=== PATIENT | male | born 1980 | race Caucasian/White ===

== ENCOUNTER 2016-07-01 00:52 | Emergency (ER) | payer OTHER ==
[2016-07-01 01:01] VITALS: RESP 18
[2016-07-01] MEDS ORDERED: KETOROLAC 60 MG/2 ML VIAL IM STA (01:15)
--- NOTE | 2016-07-01 01:15 | ED ---
General Adult HPI - General Chief complaint: ENT Stated complaint: Ear Pain/Bleeding Time Seen by Provider: 07/01/16 01:06 Source: patient Mode of arrival: ambulatory Limitations: no limitations - History of Present Illness Initial comments: 35-year-old male patient presents to emergency department today for complaints of left ear pain. Patient states that the pain started as a mild dull pain around 1900 yesterday evening. Patient states that throughout the night the pain has intensified and is now a sharp stabbing pain. Patient states that he has had some mild nasal congestion, but denies any other symptoms. Patient denies any fever or chills. Patient states he did have ear infections as a child but nothing since then. Patient states he did notice small amount of bloody drainage coming from the ear. Denies inserting anything into the ear. Denies any dizziness, headache, or weakness. - Related Data Previous Rx's Medication Instructions Recorded Amoxicillin/Potassium Clav 1 tab PO Q12HR #20 tab 07/01/16 [Augmentin 875-125 Tablet] Allergies Allergy/AdvReac Type Severity Reaction Status Date / Time No Known Allergies Allergy Verified 07/01/16 01:01 Review of Systems ROS Statement: Those systems with pertinent positive or pertinent negative responses have been documented in the HPI. ROS Other: All systems not noted in ROS Statement are negative. Past Medical History Past Medical History: No Reported History History of Any Multi-Drug Resistant Organisms: None Reported Past Surgical History: No Surgical Hx Reported Past Psychological History: No Psychological Hx Reported Smoking Status: Never smoker Past Alcohol Use History: None Reported Past Drug Use History: None Reported General Exam Limitations: no limitations General appearance: alert, in no apparent distress Eye exam: Present: normal appearance, PERRL, EOMI. Absent: scleral icterus, conjunctival injection, periorbital swelling ENT exam: Present: normal oropharynx. Absent: TM's normal bilaterally (Bloody drainage noted near tympanic membrane. No mastoid tenderness. No periauricular lymph nodes palpable.) Expanded TM/Canal exam: Bulging: Left TM, Effusion: Left TM Respiratory exam: Present: normal lung sounds bilaterally. Absent: respiratory distress, wheezes, rales, rhonchi, stridor Cardiovascular Exam: Present: regular rate, normal rhythm, normal heart sounds. Absent: systolic murmur, diastolic murmur, rubs, gallop, clicks GI/Abdominal exam: Present: soft, normal bowel sounds. Absent: distended, tenderness, guarding, rebound, rigid Neurological exam: Present: alert, oriented X3, CN II-XII intact Psychiatric exam: Present: normal affect, normal mood Skin exam: Present: warm, dry, intact, normal color. Absent: rash Course Vital Signs 07/01/16 07/01/16 00:59 02:18 Temperature 97.2 F L 98.2 F Pulse Rate 79 80 Respiratory 18 18 Rate Blood Pressure 218/114 189/111 O2 Sat by Pulse 99 96 Oximetry Medical Decision Making - Medical Decision Making 35-year-old male patient presented to emergency department today for evaluation of left ear pain. Physical exam did reveal a bulging and erythematous tympanic membrane. Patient also was found to have high blood pressure readings while in emergency. Patient was given a Norvasc which brought the blood pressure down to the 180s systolic, over 110 diastolic. He patient will be given a clonidine and discharged home with a prescription to continue Norvasc. Also given strict instructions to establish care with a primary care physician in order to manage blood pressure. Be given a prescription for Augmentin to treat otitis media. Patient instructed to return for any new, worsening, or concerning symptoms. Patient verbalizes understanding and agrees with this plan. - Lab Data Lab Results 07/01/16 Range/Units 01:29 POC Glucose (mg/dL) 121 H (75-99) mg/dL POC Glu Value Engineer ID Reagan Sawyer Disposition Clinical Impression: Otitis media, Accelerated hypertension Disposition: HOME SELF-CARE Condition: Stable Instructions: Earache (ED), Otitis Media (ED), Hypertension (ED) Additional Instructions: Take blood pressure medication as directed. It is very important that you establish care with a primary care physician in order to manage high blood pressure. Complete antibiotic prescription in full. Return to emergency department for any new, worsening, or concerning symptoms. Prescriptions: Amoxicillin/Potassium Clav [Augmentin 875-125 Tablet] 1 tab PO Q12HR #20 tab Referrals: None,Stated [Primary Care Provider] - 1-2 days Diomedes Estes MD [STAFF PHYSICIAN] - 1-2 days Time of Disposition: 02:25
[2016-07-01] MEDS ORDERED: amLODIPine 10 MG TAB PO STA (01:25)
[2016-07-01 01:30] LABS: Glucose,Whole Blood 121 mg/dL (75-99)
[2016-07-01] MEDS ORDERED: AMOXICILLIN 500MG STARTER PACK 3 CAP BTL PO STA (01:46)
[2016-07-01 02:20] VITALS: TEMP 98.2
[2016-07-01] MEDS ORDERED: cloNIDine HCL 0.1 MG TAB PO STA (02:21)
[2016-07-01 02:34] VITALS: BP 187/112; PULSE 77
== END 2016-07-01 02:41 | disposition home or self-care (01) ==
LOC: EC 00:52
DX: H66.92 Otitis media, unspecified, left ear (principal); I10 Essential (primary) hypertension; R09.81 Nasal congestion
CPT/HCPCS: 36415; 99283; 96372; J1885